=== PATIENT | female | born 1995 | race Caucasian/White ===

== ENCOUNTER 2018-01-21 20:30 | Emergency (ER) | payer OTHER ==
[~2018-01-21] VITALS: Ht 165.1 cm; Wt 47.6 kg
[~2018-01-21 20:30] MED LIST: AMOXICILLIN500 MG PO; AUGMENTIN 875-1 EACH PO; CLINDAMYCIN HC300 MG PO; DEPO-PROVE150 MG/1 M IM; IBUPROFEN200 M1 PO; IBUPROFEN400 MG PO; IBUPROFEN600 MG PO; NAPROSYN500 MG PO; NAPROXEN500 MG PO; NORCO 5-325 TA1 EACH PO; PENICILLIN V P250 MG PO; PENICILLIN V P500 MG PO; PERCOCET 5-3251 EACH PO; PROCHLORPERAZIN10 MG PO; PROZAC20 MG PO; TUSSICAPS 10 M1 EACH PO; ZITHROMAX250 MG PO
== END 2018-01-21 22:05 | disposition left against medical advice (07) ==
LOC: ED 20:30
DX: Z53.21 Procedure and treatment not carried out due to patient leaving prior to being seen by health care provider (principal)

== ENCOUNTER 2019-12-02 19:31 | Emergency (ER) | payer SELFPAY ==
[~2019-12-02] VITALS: Ht 165.1 cm; Wt 52.2 kg
--- OUTSIDE RECORDS SUMMARY | 2019-12-02 19:34 | XMS ---
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 [place] has no Care Guidelines for this patient. [place] VISIT COUNT (12 MO.) 1 JUAN Flores TOTAL 1 NOTE: Visits indicate total known visits. ED/C VISIT TRACKING (12 MO.) 12/02/2019 19:32 [facility] [place] TYPE: Emergency COMPLAINT: - HAND LACERATION INPATIENT VISIT TRACKING (12 MO.) No inpatient visits to display in this time frame [id number]
== END 2019-12-02 20:25 | disposition home or self-care (01) ==
LOC: ED 19:31
PROC: 0HQGXZZ Repair Left Hand Skin, External Approach (ICD-10-PCS; principal; 2019-12-02)
DX: S61.211A Laceration without foreign body of left index finger without damage to nail, initial encounter (principal); Z23 Encounter for immunization; F17.200 Nicotine dependence, unspecified, uncomplicated; Z88.8 Allergy status to other drugs, medicaments and biological substances; W26.0XXA Contact with knife, initial encounter
CPT/HCPCS: 12001; 90471; 90715; 99282-25

== ENCOUNTER 2020-06-07 13:49 | Emergency (ER) | payer SELFPAY ==
[~2020-06-07] VITALS: Ht 165.1 cm; Wt 52.2 kg
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
[2020-06-07] MEDS ORDERED: ONDANSETRON ODT4 MG PO (16:40)
== END 2020-06-07 16:47 | disposition home or self-care (01) ==
LOC: ED 13:49
DX: R11.2 Nausea with vomiting, unspecified (principal); Z20.822 Contact with and (suspected) exposure to COVID-19; Z87.891 Personal history of nicotine dependence; Z88.8 Allergy status to other drugs, medicaments and biological substances
CPT/HCPCS: 80053; 81001; 83690; 83735; 84703; 85025; 96374; 96375; 99284-25; C9803; J1885; J2405; J7030; U0003

== ENCOUNTER 2022-04-09 10:43 | Emergency (ER) | payer SELFPAY ==
[~2022-04-09] VITALS: Ht 165.1 cm; Wt 52.0 kg
[~2022-04-09 10:43] MED LIST changes: +ONDANSETRON ODT4 MG PO
--- OUTSIDE RECORDS SUMMARY | 2022-04-09 10:46 | XMS ---
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 [place] has no Care Guidelines for this patient. [place] VISIT COUNT (12 MO.) 1 JUAN Flores TOTAL 1 NOTE: Visits indicate total known visits. ED/C VISIT TRACKING (12 MO.) 04/09/2022 10:43 [facility] [place] TYPE: Emergency COMPLAINT: - NECK PAIN/INJURY INPATIENT VISIT TRACKING (12 MO.) No inpatient visits to display in this time frame [id number]
== END 2022-04-09 13:30 | disposition left against medical advice (07) ==
LOC: ED 10:43
DX: M54.2 Cervicalgia (principal); Z53.21 Procedure and treatment not carried out due to patient leaving prior to being seen by health care provider; Z87.891 Personal history of nicotine dependence; Z88.0 Allergy status to penicillin
CPT/HCPCS: 72040; 99283-25